=== PATIENT | female | born 1960 | race Caucasian/White ===

== ENCOUNTER 2016-11-22 17:45 | Emergency (ER) | payer BC ==
[~2016-11-22] VITALS: Ht 154.9 cm; Wt 63.3 kg
[2016-11-22 18:08] VITALS: TEMP 36.7; Ht 154.9 cm; Wt 63.3 kg
[2016-11-22] MEDS ORDERED: HYDROCODONE/ACETAMOPHEN 5/325MG TAB PO STA (18:18)
--- NOTE | 2016-11-22 18:52 | DIAGNOSTIC IMAGING REPORT ---
RIGHT ELBOW MIN 3 VIEWS ROUTINE CLINICAL HISTORY: right elbow injury/fall Right trauma COMPARISON: None. DISCUSSION: The bones and joint spaces appear intact. There is no evidence of fracture, dislocation or bony disease. There is no evidence for soft tissue swelling. IMPRESSION: Negative study. The above report was generated using voice recognition software. It may contain grammatical, syntax or spelling errors. Electronically signed by: Regulo Bello M.D. 11/22/2016 6:51 PM Dictated Date/Time: 11/22/2016 6:50 PM
--- NOTE | 2016-11-22 19:05 | EMERGENCY ROOM VISIT NOTE ---
ED Visit Note First contact with patient: 18:15 CHIEF COMPLAINT: Right Elbow injury HISTORY OF PRESENT ILLNESS: This 56-year-old female presents the ER with chief complaint of right elbow injury. The patient states 10 days ago she was in her attic and fell striking a beam with her right elbow. The patient states that she thought it was just bruised but the pain has been getting worse. She states it was more swollen at first but that is improving. The patient denies any numbness and tingling in her finger. The patient is right-hand dominant. The patient denies any prior injuries to her right elbow. The patient has been taking Advil without any relief of the pain. REVIEW OF SYSTEMS: 6 system review was performed and was negative unless stated otherwise in history of present illness. PMH: The patient is healthy; hysterectomy, cholecystectomy SOCIAL HISTORY: Patient lives alone. The patient denies any tobacco or alcohol use. PHYSICAL EXAM: Vital Signs: Were reviewed Reviewed nurse's notes. GENERAL: 56- year-old white female appears in no acute distress. MENTAL STATUS: Alert and oriented 3. RIGHT ELBOW: No gross bony deformity noted. There is edema and ecchymosis noted over the lateral aspect of the elbow. This does extend both inferior and superior to the elbow joint. Patient has limited range of motion secondary to pain. Radial pulses 2+. Full range of motion of the shoulder and wrist without a period EMERGENCY DEPARTMENT COURSE: The patient was evaluated. The patient was given Delray 5/325 mg 1 pill appear for pain. X-ray of the right elbow was ordered and interpreted by the radiologist and myself. DIAGNOSTICS:RIGHT ELBOW MIN 3 VIEWS ROUTINE CLINICAL HISTORY: right elbow injury/fall Right trauma COMPARISON: None. DISCUSSION: The bones and joint spaces appear intact. There is no evidence of fracture, dislocation or bony disease. There is no evidence for soft tissue swelling. IMPRESSION: Negative study. The above report was generated using voice recognition software. It may contain grammatical, syntax or spelling errors. Electronically signed by: Regulo Bello M.D. 11/22/2016 6:51 PM The patient was informed of the findings. The patient was placed in a right arm sling. The patient was discharged home in stable condition with a friend driving. DIAGNOSIS: Right Elbow contusion DISCHARGE INSTRUCTIONS & TREATMENT: Rest the arm in a sling until the pain subsides. Ibuprofen 600 mg every 6 hours with food for pain. Take Delray as needed for more severe pain. Do not drive while taking the Delray. If symptoms are not improving in 5-7 days, follow-up with your family doctor for reevaluation. Vital Signs Date Time Temp Pulse Resp B/P (MAP) Pulse Ox O2 Delivery O2 Flow Rate FiO2 11/22/16 18:08 36.7 75 18 139/101 98 Room Air Medications Administered Medications (Trade) Dose Ordered Sig/[place] Route Start Time Stop Time Status Last Admin Dose Admin Acetaminophen/ Hydrocodone Bitart (Delray 5/325 Tab) 1 tab NOW STAT PO 11/22/16 18:18 11/22/16 18:22 DC 11/22/16 18:33 1 TAB Departure Information Patient Instructions My [facility]
[2016-11-22] MEDS ORDERED: HYDR-5688 PO (19:07)
[2016-11-22 19:23] VITALS: BP 147/94; PULSE 65; O2SAT 95
== END 2016-11-22 19:24 | disposition home or self-care (01) ==
LOC: C.EDB 17:45 → C.EDD 19:24
DX: S50.01XA Contusion of right elbow, initial encounter (principal); W19.XXXA Unspecified fall, initial encounter